=== PATIENT | female | born 1980 | race Caucasian/White ===

== ENCOUNTER 2021-04-24 10:24 | Outpatient (REF) | payer OTHER, SELFPAY ==
[2021-04-24 10:46] LABS: MANUAL DIFF FLAG NO
[2021-04-24 10:50] LABS: Basophils Absolute Auto 0.1 X10*3/uL (0.0-0.2); Basophils Percent Auto 1.3 % (0-2); Eosinophils Absolute Auto 0.1 X10*3/uL (0.0-0.4); Eosinophils Percent Auto 2.3 % (0-4); Hematocrit 40.8 % (37.0-47.0); Hemoglobin 13.2 g/dl (12.0-16.0); Imm Gran Abs Auto 0.02 X10*3/uL (0.00-0.03); Imm Gran Pct Auto 0.3 % (0.0-0.4); Lymphocytes Absolute Auto 2.1 X10*3/uL (1.2-4.9); Lymphocytes Percent Auto 33.2 % (20-40); Mean Corpuscular HGB Conc 32.4 g/dl (31.0-35.0); Mean Corpuscular Volume 92.7 fL (80.0-98.0); Mean Platelet Volume 10.6 fL (9.4-12.3); Monocytes Absolute Auto 0.7 X10*3/uL (0.1-1.2); Neutrophils Absolute Auto 3.2 x10*3/uL (2.0-8.3); Neutrophils Percent Auto 51.9 % (45-73); Platelet Count 243 X10*3/uL (160-400); Red Cell Distribution Width 12.7 % (11.0-16.0); White Blood Count 6.2 X10*3/uL (4.8-10.8)
[2021-04-24 11:25] LABS: Alanine Aminotransferase 17 U/L (0-31); Anion Gap 8 (12-20); Aspartate Amino Transferase 17 U/L (5-31); Blood Urea Nitrogen 12 mg/dL (9-16); Calcium 9.4 mg/dL (8.4-10.2); Carbon Dioxide 28 mmol/L (22-29); Chloride 108 mmol/L (96-108); Cholesterol 224 mg/dL; Estimated Glomerular Filt Rate > 60; Glucose Fasting 96 mg/dL (60-99); HDL Cholesterol 74 mg/dL; LDL Cholesterol Calculated 135 mg/dl; Potassium 4.2 mmol/L (3.3-5.1); Sodium 140 mmol/L (135-145); Triglycerides 78 mg/dL
[2021-04-24 11:42] LABS: Vitamin D 25-OH Total 25.8 ng/mL (>30)
== END 2021-04-24 10:25 | disposition home or self-care (01) ==
LOC: HO.LAB 10:24
PROVIDERS: PCP Internal Medicine; Visit Provider Internal Medicine
DX: Z00.00 Encounter for general adult medical examination without abnormal findings (principal); E55.9 Vitamin D deficiency, unspecified; I10 Essential (primary) hypertension
CPT/HCPCS: 36415; 80048; 80061; 82306; 84450; 84460; 85025

== ENCOUNTER 2023-03-13 12:58 | Outpatient (AMB) | payer OTHER, SELFPAY ==
[2023-03-13 13:20] VITALS: BP 110/70; PULSE 73; O2SAT 99; BMI 21.7
--- NOTE | 2023-03-13 13:20 | MHC.PC.OV ---
Vital Signs 03/13/23 13:20 Height 5 ft 8 in Weight 142 lb 8 oz BMI 21.7 BP 110/70 Blood Pressure Location Lt brachial Position Sitting Pulse 73 Pulse Source Pulse Oximeter Pulse Oximetry (%) 99 Oxygen Delivery Method Room Air Intake Visit Reasons: Hip Pain Intake Note: pt is here for Bi-lat Hip pain and was seen [facility] in [place] ER in September due to not being able to walk due to this Hip pain Allergies penicillin V Allergy (Unknown, Verified 06/16/23 04:32) rash Medication List - Last Reconciled 06/16/23 by Ivy Tran MD Paxlovid 300 mg (150 mg x 2)-100 mg (nirmatrelvir-ritonavir) take TWO 150 mg tablets of nirmatrelvir with ONE 100 mg tablet of ritonavir twice daily for 5 days PO NS Tobacco use date assessed: 03/13/23 Dental Screening Dental Screen Date: 03/13/23 Did you have a dental visit in the last 12 months?: No Did you have a dental problem in the last 6 months where you did not have access to dental care?: No Was dental information given to patient?: No HPI Hip Pain HPI Details 42-year-old lady here today complaining of ongoing hip pain present now for almost a year. Patient states that it got worse that she could not walk and presented to the ER with same complaint. She has been taking ibuprofen and Tylenol alternating with no relief afforded. Denies any history of trauma or strenuous exertion. Denies any accompanying urine or stool incontinence, no numbness or weakness in extremities reported. [facility], LAT[facility] Medical History Chronic hip pain, bilateral History of herpes simplex infection Hx of Hx of major depression ADHD, predominantly inattentive type Cervical intraepithelial neoplasia grade 3 HGSIL (high grade squamous intraepithelial lesion) on Pap smear of cervix Vitamin D deficiency Surgical History S/P LEEP (loop electrosurgical excision procedure) History of colposcopy Family History Father Prostate cancer Mother Bladder cancer Social History Housing: Apartment Patient Tobacco Use Status: Former Tobacco user e-Cigarette/Vaping Use: Never Used Second Hand Smoke Exposure: No service: No Current occupational status: employed Cognitive needs: No Hearing needs: No Vision needs: No Questionnaire Thrive Questionnaire Date Thrive assessed: 05/01/21 GRANT-7 AMB Questionnaire GRANT-7 Date GRANT - 7 assessed: 05/01/21 Source: Developed by Drs. Librado Gaona, Marla Andre, Amador Archibald and colleagues, with an educational renate from [employer]. Review of Systems Const Denies fever(s) and Denies weakness Card Denies chest pain, Denies lightheadedness and Denies dyspnea Resp Denies chest congestion, Denies cough and Denies dyspnea GI Denies abdominal pain, Denies change in bowel habits and Denies heartburn Denies urinary frequency, Denies dysuria and Denies urinary urgency Musc Reports no additional complaints Skin/Breast Denies lesions and Denies rash Neuro Denies Sensory deficit (Neuro) and Denies weakness Physical exam (Primary Care) Vital Signs: Last Vital Signs Pulse 73 03/13/23 13:20 BP 110/70 03/13/23 13:20 Pulse Ox 99 03/13/23 13:20 Oxygen Delivery Method Room Air 03/13/23 13:20 BMI result Body Mass Index 21.7 Tobacco/Smoking Status: Tobacco use Status Tobacco use date assessed 03/13/23 03/13/23 13:23 Patient Tobacco Use Status Former Tobacco user 03/13/23 13:23 e-Cigarette/Vaping Use Never Used 03/13/23 13:23 Thrive Assessment: Date of Thrive Assessment Date Thrive assessed 05/01/21 03/13/23 13:23 Const General: cooperative, no acute distress and alert Orientation/consciousness: patient oriented x3 HENMT Head: Yes atraumatic Ears: hearing grossly normal bilaterally and external ears normal General nose exam: Normal external nose present Face and sinus: Yes face symmetric Mouth: Normal oral and palatal mucosa present, oropharynx normal and moist mucous membranes Eyes Conjunctivae: conjunctivae normal Sclerae: sclerae normal EOM: EOMs intact bilaterally Neck Neck: Yes full ROM and Yes no lymphadenopathy Thyroid: Thyroid normal Resp Effort & Inspection: normal respiratory effort and able to speak in complete sentences Auscultation: clear to auscultation bilaterally Cardio Jugular venous distension: no JVD Rate: regular rate Rhythm: regular rhythm Heart sounds: S1 normal heart sound present and S2 normal heart sound present GI Inspection: Yes normal to inspection Palpation (GI): Soft to palpation Auscultation: normal bowel sounds General: Yes no CVA tenderness Back/Spine/Pelvis Back: no CVA tenderness and No back tenderness Skin General skin exam: no rashes or lesions noted Neuro General: patient oriented x3, gait normal, moves all extremities, no focal motor deficits and CN's II-XI intact bilaterally Cognition (Neuro): normal cognition Gait exam (Neuro): Normal gait present Motor exam (neuro): 5/5 motor strength present throughout Sensory Exam: No Sensory deficit (Neuro) Extrem Other: Pain list on flexion abduction of hip joint, negative straight leg raising sign bilaterally, no tenderness on palpation over greater trochanter General: Yes normal to inspection, Yes no pedal edema and Yes normal gait Assessment and Plan Assessment & Plan (1) Chronic hip pain, bilateral: Code(s): M25.551 - Pain in right hip; M25.552 - Pain in left hip; G89.29 - Other chronic pain Plan: Ordered x-ray of bilateral hip including pelvis, Referred to orthopedics for further evaluation management Orders: Orders XR hip BI w PEL1V 03/13/23 M25.551 - Pain in right hip, M25.552 - Pain in left hip, G89.29 - Other chronic pain Referrals Orthopedics Referral M25.551 - Pain in right hip, M25.552 - Pain in left hip, G89.29 - Other chronic pain Coding Level of Care Code Est Pt Level 3 (80878) Diagnoses Chronic hip pain, bilateral M25.551; M25.552; G89.29
== END 2023-03-13 13:42 | disposition home or self-care (01) ==
PROVIDERS: PCP Internal Medicine; Visit Provider Internal Medicine
DX: M25.551 Pain in right hip (principal); M25.552 Pain in left hip; G89.29 Other chronic pain
CPT/HCPCS: 99499

== ENCOUNTER 2023-03-13 13:44 | Outpatient (REF) | payer OTHER, SELFPAY ==
--- NOTE | ~2023-03-13 | XR_ITS ---
EXAMINATION: XR BILATERAL HIPS WITH AP PELVIS CLINICAL INFORMATION: Right hip pain. COMPARISON: None available. TECHNIQUE: AP view of the pelvis and AP and frog-leg lateral views of the bilateral hips were obtained. FINDINGS: No fracture. Hip joint spaces are maintained. A tiny accessory ossification centers incidentally noted lateral to the left acetabular roof. Alignment is anatomic. Sacroiliac joints and pubic symphysis are normal. There is sacralization of the left L5 transverse process. There is a small L5 spina bifida defect. There are small pelvic phleboliths. No abnormal soft tissue calcifications. XR/XR hip BI w PEL1V IMPRESSION: 1. No acute fracture or dislocation is seen. 2. No unusual degenerative changes are seen of the hips. 3. There is sacralization of the L5 left transverse process.
== END 2023-03-13 13:45 | disposition home or self-care (01) ==
LOC: HO.HMGCX 13:44
PROVIDERS: PCP Internal Medicine; Visit Provider Internal Medicine
DX: M25.551 Pain in right hip (principal); M25.552 Pain in left hip; G89.29 Other chronic pain
CPT/HCPCS: 73521

== ENCOUNTER 2023-04-03 08:02 | Outpatient (AMB) | payer OTHER, SELFPAY ==
--- NOTE | 2023-04-03 08:04 | A.OFFVIS_ITS ---
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 Patient reports ongoing pain for a year and a half with no previous treatment. No hx of injury or trauma. She stated that her pain got worse back in September which made her go to the ED and she couldn't walk for 5 days. Allergies penicillin V Allergy (Unknown, Verified 04/03/23 08:26) rash HPI pharmacy technician inpatient- Bilateral hip pain HPI Details 42-year-old female who presents in the [facility] today for an evaluation of bilateral hip pain. The patient reports ongoing pain for 1.5 years with no prior treatment. She does not recall any injury or trauma to the bilateral hips. She reports increased pain in 09/2022. She confirms taking Tylenol and Ibuprofen with no relief. [facility] Medical History (Updated 04/03/23 @ 08:46 by Amber Wilkerson PA-C) Chronic hip pain, bilateral History of herpes simplex infection Hx of Hx of major depression ADHD, predominantly inattentive type Cervical intraepithelial neoplasia grade 3 HGSIL (high grade squamous intraepithelial lesion) on Pap smear of cervix Vitamin D deficiency Surgical History (Updated 05/01/21 @ 13:33 by Ivy Tran MD) S/P LEEP (loop electrosurgical excision procedure) History of colposcopy Family History (Updated 05/20/21 @ 22:46 by Ivy Tran MD) Father Prostate cancer Mother Bladder cancer Social History Housing: Apartment Patient Tobacco Use Status: Former Tobacco user e-Cigarette/Vaping Use: Never Used Second Hand Smoke Exposure: No service: No Current occupational status: employed Cognitive needs: No Hearing needs: No Vision needs: No Review of Systems Const All systems reviewed & are unremarkable except as noted in HPI and below Physical Exam Const General: cooperative, healthy appearing and no acute distress Resp Effort & Inspection: normal respiratory effort and able to speak in complete sentences Cardio Rate: regular rate Peripheral pulses: Peripheral pulses 2+ throughout GI Palpation (GI): Soft to palpation Skin Lesions: no lesions Rashes: no rashes Extrem Other: Bilateral hips: Normal to inspection. No ecchymosis, erythema, or edema. Reproducible hip flexor pain. Full hip ROM in all planes. No tenderness to palpation over the greater trochanteric bursa. 4/5 strength with resisted hip flexion, knee extension, abduction, and abduction. Able to perform straight leg raise. NVI. Assessment & Plan Assessment & Plan (1) Tendonitis of right hip flexor: Code(s): M76.891 - Other specified enthesopathies of right lower limb, excluding foot (2) Tendonitis of left hip flexor: Code(s): M76.892 - Other specified enthesopathies of left lower limb, excluding foot Plan Ms. Garrison is a 42-year-old female who presents in the office today for an evaluation of bilateral hip pain. The patient reports ongoing pain for 1.5 years with no prior treatment. She does not recall any injury or trauma to the bilateral hips. She reports increased pain in 09/2022. She confirms taking Tylenol and Ibuprofen with no relief. The patient will be referred to physical therapy for hip flexor tendonitis bilaterally. We discussed that she will need to be dedicated to therapy to help get relief. I would like to re-evaluate in 8 weeks. In the event her symptoms have not decreased or resolved then we will consider a referral to Pain Management to evaluate for lower back involvement. Follow up will be in 8 weeks, or sooner if needed. X-rays of the bilateral hips, obtained on 03/13/2023, revealed: 1. No acute fracture or dislocation is seen. 2. No unusual degenerative changes are seen of the hips. 3. There is sacralization of the L5 left transverse process. Orders: Orders PT Evaluation and Treatment Today M76.891 - Other specified enthesopathies of right lower limb, excluding foot, M76.892 - Other specified enthesopathies of left lower limb, excluding foot Patient Instructions: Scribed for Amber Wilkerson PA-C by Emmy Bond medical secretary, on 04/03/2023 at 8:05 am, EST. Coding Level of Care Code New Pt Level 4 (87919) Diagnoses Tendonitis of right hip flexor M76.891 Tendonitis of left hip flexor M76.892
== END 2023-04-03 08:51 | disposition home or self-care (01) ==
PROVIDERS: PCP Internal Medicine; Visit Provider Physician Assistant
DX: M76.891 Other specified enthesopathies of right lower limb, excluding foot (principal); M76.892 Other specified enthesopathies of left lower limb, excluding foot
CPT/HCPCS: 99203

== ENCOUNTER → 2023-04-03 08:02 | Outpatient (BNVA) | payer OTHER, SELFPAY | PROVIDERS: PCP Internal Medicine; Visit Provider Physician Assistant | DX: M76.891 Other specified enthesopathies of right lower limb, excluding foot (principal); M76.892 Other specified enthesopathies of left lower limb, excluding foot | CPT/HCPCS: 99202 ==

== ENCOUNTER 2023-05-29 09:53 | Outpatient (AMB) | payer OTHER, SELFPAY ==
--- NOTE | 2023-05-29 09:55 | MHC.OFFVIS ---
Intake Intake Visit Reasons: TEL-Bilateral hip pain-Follow up Intake Note: Luz Maria is a 42 year old female who presents today for a telehealth visit for her bilateral hip pain. Patient reports still having ongoing pain. PT is going well, however they told her she has a hip and spine disalignment. She states her pain is worse when walking and standing for too long. Allergies penicillin V Allergy (Unknown, Verified 04/03/23 08:26) rash HPI TEL-Bilateral hip pain-Follow up HPI Details 42-year-old female who presents via phone for a telehealth visit today for a follow up of bilateral hip pain. I last saw the patient in the office on 04/03/2023 when she was referred to physical therapy. The patient reports she is attending physical therapy and states they are concerned the patient has some malalignment issues with the hips and spine. She reports continued pain in the hips. She states this increases with walking and standing for long periods of time. [facility] Medical History (Updated 04/03/23 @ 08:46 by Amber Wilkerson PA-C) Chronic hip pain, bilateral History of herpes simplex infection Hx of Hx of major depression ADHD, predominantly inattentive type Cervical intraepithelial neoplasia grade 3 HGSIL (high grade squamous intraepithelial lesion) on Pap smear of cervix Vitamin D deficiency Surgical History (Updated 05/01/21 @ 13:33 by Ivy Tran MD) S/P LEEP (loop electrosurgical excision procedure) History of colposcopy Family History (Updated 05/20/21 @ 22:46 by Ivy Tran MD) Father Prostate cancer Mother Bladder cancer Social History Housing: Apartment Patient Tobacco Use Status: Former Tobacco user e-Cigarette/Vaping Use: Never Used Second Hand Smoke Exposure: No service: No Current occupational status: employed Cognitive needs: No Hearing needs: No Vision needs: No Review of Systems Const All systems reviewed & are unremarkable except as noted in HPI and below Physical Exam Extrem Other: Deferred due to being a telehealth visit. Assessment & Plan Assessment & Plan (1) Tendonitis of right hip flexor: Code(s): M76.891 - Other specified enthesopathies of right lower limb, excluding foot (2) Tendonitis of left hip flexor: Code(s): M76.892 - Other specified enthesopathies of left lower limb, excluding foot Plan Ms. Garrison is a 42-year-old female who presents via phone for a telehealth visit today for a follow up of bilateral hip pain. I last saw the patient in the office on 04/03/2023 when she was referred to physical therapy. The patient reports she is attending physical therapy and states they are concerned the patient has some malalignment issues with the hips and spine. She reports continued pain in the hips. She states this increases with walking and standing for long periods of time. Due to the patient continue to having pain and complications I have placed a referral for the patient to be seen by Podiatry. I would like for the patient to be seen after she has completed physical therapy in 6 weeks. This appointment will be scheduled and the patient will be informed of date and time today. Follow up with orthopedics will be PRN, or sooner if needed. Patient Instructions: Scribed for Amber Wilkerson PA-C by vivian Meeks scribe, on 05/29/2023 at 9:44 am, EST. Telehealth Telehealth Location of provider rendering services: practice address Location of patient: address on file Patient Identification confirmed using: Name, : Yes Telehealth method: voice only Patient verbally consented to treatment: Yes Patient verbally consented to billing insurance company: Yes Patient informed of any privacy concerns related to visit: Yes Minutes spent on Phone/Video with Pt.: 6 Coding Level of Care Code Tele Est Pt Level 3 (71721) Diagnoses Tendonitis of right hip flexor M76.891 Tendonitis of left hip flexor M76.892
== END 2023-05-29 10:05 | disposition home or self-care (01) ==
PROVIDERS: PCP Internal Medicine; Visit Provider Physician Assistant
DX: M76.891 Other specified enthesopathies of right lower limb, excluding foot (principal); M76.892 Other specified enthesopathies of left lower limb, excluding foot
CPT/HCPCS: 99213

== ENCOUNTER → 2023-05-29 09:53 | Outpatient (BNVA) | payer OTHER, SELFPAY | PROVIDERS: PCP Internal Medicine; Visit Provider Physician Assistant ==

== ENCOUNTER 2023-10-30 09:18 | Outpatient (REF) | payer OTHER, SELFPAY ==
[2023-10-30 11:28] LABS: Alanine Aminotransferase 16 U/L (0-31); Anion Gap 13 (12-20); Aspartate Amino Transferase 19 U/L (5-31); Blood Urea Nitrogen 12 mg/dL (9-16); Calcium 9.3 mg/dL (8.4-10.2); Carbon Dioxide 25 mmol/L (22-29); Chloride 105 mmol/L (96-108); Cholesterol 241 mg/dL (<200); Estimated Glomerular Filt Rate > 60; Glucose Fasting 96 mg/dL (60-99); HDL Cholesterol 64 mg/dL (>40); LDL Cholesterol Calculated 161 mg/dL (<100); Sodium 139 mmol/L (135-145); Triglycerides 80 mg/dL (<150)
== END 2023-10-30 09:19 | disposition home or self-care (01) ==
LOC: HO.HMGCLDS 09:18
PROVIDERS: PCP Internal Medicine; Visit Provider Internal Medicine
DX: E55.9 Vitamin D deficiency, unspecified (principal); E78.5 Hyperlipidemia, unspecified; Z13.1 Encounter for screening for diabetes mellitus
CPT/HCPCS: 36415; 80048; 80061; 82306; 84450; 84460

== ENCOUNTER 2023-11-04 12:30 | Outpatient (AMB) | payer OTHER, SELFPAY ==
[2023-11-04 12:47] VITALS: BP 102/70; PULSE 71; O2SAT 99; BMI 21.0
--- NOTE | 2023-11-04 12:47 | MHC.PC.OV ---
Vital Signs 11/04/23 12:47 Height 5 ft 8 in Weight 138 lb BMI 21.0 BP 102/70 Blood Pressure Location Rt brachial Position Sitting Pulse 71 Pulse Source Pulse Oximeter Pulse Oximetry (%) 99 Oxygen Delivery Method Room Air Intake Visit Reasons: Physical Exam Intake Note: Pt is here today for her PE Is last menstrual period known: Yes Last menstrual period: 11/03/23 Allergies penicillin V Allergy (Unknown, Verified 11/08/23 23:05) rash Medication List - Last Reconciled 11/04/23 by Ivy Tran MD [id number] 120 mcg-25 mg- 66.7 mg (Alive Premium ) tabs PO Tobacco use date assessed: 11/04/23 Dental Screening Dental Screen Date: 11/04/23 Did you have a dental visit in the last 12 months?: Yes Did you have a dental problem in the last 6 months where you did not have access to dental care?: No Was dental information given to patient?: Patient has dentist HPI Physical Exam HPI Details 42-year-old lady here today for physical exam. 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 She currently sees [facility] for her routine Pap and pelvic exam. [facility] Medical History Hyperlipidemia History of miscarriage Chronic hip pain, bilateral History of herpes simplex infection Hx of Hx of major depression ADHD, predominantly inattentive type Cervical intraepithelial neoplasia grade 3 HGSIL (high grade squamous intraepithelial lesion) on Pap smear of cervix Vitamin D deficiency Surgical History S/P LEEP (loop electrosurgical excision procedure) History of colposcopy Family History Father Prostate cancer Mother Bladder cancer Social History Housing: Apartment Patient Tobacco Use Status: Former Tobacco user e-Cigarette/Vaping Use: Never Used Second Hand Smoke Exposure: No service: No Current occupational status: employed Cognitive needs: No Hearing needs: No Vision needs: No Female Reproductive History Menstrual Date of last menstrual period: 11/03/23 Questionnaire PHQ-9 Over the last 2 weeks, how often have you been bothered by any of the following problems? 1. Little interest or pleasure in doing things: not at all 2. Feeling down, depressed, or hopeless: not at all 3. Trouble falling or staying asleep, or sleeping too much: not at all 4. Feeling tired or having little energy: not at all 5. Poor appetite or overeating: not at all 6. Feeling bad about yourself - or that you are a failure or have let yourself or your family down: not at all 7. Trouble concentrating on things, such as reading the newspaper or watching television: not at all 8. Moving or speaking so slowly that other people could have noticed. Or the opposite - being so fidgety or restless that you have been moving around a lot more than usual: not at all 9. Thoughts that you would be better off or of hurting yourself in some way: not at all Total score: 0 Depression Screening Interpretation: Negative Depression Screening Done: Yes 65723 - PHQ-9 Billing: Yes Source: Developed by Drs. Librado Gaona, Marla Andre, Amador Archibald and colleagues, with an educational renate from [employer]. Thrive Questionnaire Date Thrive assessed: 11/04/23 I am a: Patient What is your living situation today?: I have a steady place to live Within the past 12 months, did the food you bought not last and you didn't have the money to get more?: Never true Within the past 12 months, did you worry whether your food would run out before you got money to buy more?: Never true Do you have trouble paying for medicines?: No Do you have trouble getting transportation to medical appointments?: No Do you have trouble paying your heating and electricity bill?: No Do you have trouble taking care of your child, family member or friend?: No Do you have trouble with day-to-day activities such as bathing, preparing meals, shopping, managing finances, etc.?: No Are you currently unemployed and looking for a job?: No Are you interested in more education?: No THRIVE Score: 0 AUDIT C Alcohol Use Questionnaire (AUDIT-C) 1. How often do you have a drink containing alcohol?: Never Total Score: 0 GRANT-7 AMB Questionnaire GRANT-7 Date GRANT - 7 assessed: 11/04/23 Feeling nervous, anxious, or on edge: 0 = Not at all Not being able to stop or control worryin = Not at all Worrying too much about different things: 0 = Not at all Trouble relaxin = Not at all Being so restless that it is hard to sit still: 0 = Not at all Becoming easily annoyed or irritable: 0 = Not at all Feeling afraid as if something awful might happen: 0 = Not at all Total GRANT-7 score (0-4 normal; 5-9 mild; 10-14 moderate; 15-21 severe): 0 Source: Developed by Drs. Librado Gaona, Marla Andre, Amador Archibald and colleagues, with an educational renate from [employer]. GRANT-7 Assessment Billing GRANT-7 Assessment Tool: GRANT-7 Assessment 85902 Review of Systems Const Denies fever(s) and Denies weakness Eyes Denies change in vision ENT Reports no additional complaints Card Denies chest pain, Denies lightheadedness and Denies dyspnea Resp Denies chest congestion, Denies cough and Denies dyspnea GI Denies abdominal pain, Denies change in bowel habits and Denies heartburn Denies urinary frequency, Denies dysuria and Denies urinary urgency Musc Reports no additional complaints Skin/Breast Denies lesions and Denies rash Neuro Denies Sensory deficit (Neuro) and Denies weakness Endo Reports no additional complaints Eduin/Lymph Reports no additional complaints Aller/Immun Reports no additional complaints Physical exam (Primary Care) Vital Signs: Last Vital Signs Pulse 71 11/04/23 12:47 BP 102/70 11/04/23 12:47 Pulse Ox 99 11/04/23 12:47 Oxygen Delivery Method Room Air 11/04/23 12:47 BMI result Body Mass Index 21.0 Tobacco/Smoking Status: Tobacco use Status Tobacco use date assessed 11/04/23 11/04/23 12:50 Patient Tobacco Use Status Former Tobacco user 11/04/23 12:50 e-Cigarette/Vaping Use Never Used 11/04/23 12:50 PHQ-9: PHQ-9 Score PHQ-9: Total score 0 11/08/23 23:06 Depression Screening Interpretation: Negative Thrive Assessment: Date of Thrive Assessment Date Thrive assessed 11/04/23 11/04/23 12:55 Advance Care Planning discussion: Completed/Scanned Date of discussion: 11/04/23 Who was present: Patient Forms completed: Health Care Proxy Time spent: 16-45 minutes Actual minutes spent: 16 Const General: cooperative, no acute distress and alert Orientation/consciousness: patient oriented x3 HENMT Ears: hearing grossly normal bilaterally and external ears normal General nose exam: Normal external nose present Face and sinus: Yes face symmetric Mouth: Normal oral and palatal mucosa present, oropharynx normal and moist mucous membranes Eyes Conjunctivae: conjunctivae normal Sclerae: sclerae normal EOM: EOMs intact bilaterally Neck Neck: Yes full ROM and Yes no lymphadenopathy Thyroid: Thyroid normal Chest Chest palpation & inspection: normal inspection of the chest Breast/axilla palpation: normal palpation of the breasts Resp Effort & Inspection: normal respiratory effort and able to speak in complete sentences Auscultation: clear to auscultation bilaterally Cardio Jugular venous distension: no JVD Rate: regular rate Rhythm: regular rhythm Heart sounds: S1 normal heart sound present and S2 normal heart sound present GI Inspection: Yes normal to inspection Palpation (GI): Soft to palpation Auscultation: normal bowel sounds General: Yes no CVA tenderness and Yes deferred (Goes to [facility] for her routine Pap and pelvic exam) Back/Spine/Pelvis Back: no CVA tenderness and No back tenderness Skin General skin exam: no rashes or lesions noted Neuro General: patient oriented x3, gait normal, moves all extremities, no focal motor deficits and CN's II-XI intact bilaterally Cognition (Neuro): normal cognition Gait exam (Neuro): Normal gait present Motor exam (neuro): 5/5 motor strength present throughout Sensory Exam: No Sensory deficit (Neuro) Extrem General: Yes normal to inspection, Yes no pedal edema and Yes normal gait Psych Appearance: grossly normal and well kempt Mental Status: mental status grossly normal Speech and movement: Normal speech and movement present Affect: normal affect Thought process: Normal thought process present Thought content: Normal thought content present Results Reviewed Results Reviewed: Name: Luz Maria Garrison Age/Sex: 42/F : 1980 Unit#: [id number] Attend Dr: Ivy Tran MD Re10/30/23 Status: DEP REF [facility]: [id number] Disch: SPEC : [id number] KHUSHBOO: 10/30/23 STATUS: COMP REQ : [id number] RECD: 10/30/23-[address]: Ivy Tran MD COMP: 10/30/23-1132 ENTERED: 10/30/[address]: ORDERED: Met Prof Fast, AST, ALT, Lipid Panel, Vitamin D 25-OH Test Result Flag Reference Sodium 139 135-145 mmol/L Potassium 4.0 3.3-5.1 mmol/L CL 105 96-108 mmol/L CO2 25 22-29 mmol/L Gap 13 12-20 BUN 12 9-16 mg/dL Creat 0.87 0.5-1.4 mg/dL EGFR > 60 NOTE: For -Iraqi individuals, multiply the result by 1.210. Chronic Kidney Disease: Estimated GFR < 60 mL/min/1.73m2 Severe Kidney Disease: Estimated GFR < 15 mL/min/1.73m2 FBS 96 60-99 mg/dL CA 9.3 8.4-10.2 mg/dL AST (GOT) 19 5-31 U/L ALT (GPT) 16 0-31 U/L Triglyceride 80 <150 mg/dL Desirable Triglyceride: less than 150 mg/dL Borderline High Triglyceride 150-199 mg/dL High Triglyceride: 200-499 mg/dL Very High Triglyceride: greater than or equal to 5OO mg/dL Cholesterol 241 H <200 mg/dL Desirable Cholesterol: less than 200 mg/dL Borderline High Cholesterol: 200-239 mg/dL High Cholesterol: greater than 239 mg/dL LDL Calculated 161 H <100 mg/dL Desirable LDL: less than 100 mg/dL Near Optimal/Above Optimal LDL: 110-129 mg/dL Borderline High LDL: 130-159 mg/dL High LDL: 160-189 mg/dL Very High LDL: greater than or equal to 190 mg/dL HDL 64 >40 mg/dL Desirable HDL: greater than 40 mg/dL Note: This HDL assay may give artificially low results in patients with liver disease. Vit D 25-OH Tot 60.0 >30 ng/mL Health Based Reference Values* < 20 ng/mL Deficient 20-30 ng/mL Insufficient > 30 ng/mL Sufficient Assessment and Plan Assessment & Plan (1) Annual visit for general adult medical examination with abnormal findings: Code(s): Z00.01 - Encounter for general adult medical examination with abnormal findings Plan: Discuss recent lab results with patient. Recommended dental visit every 6 months and regular eye exams, at least every 2 years. Take adequate calcium in diet and vitamin-D 3 at 2000 IU per cap once a day, in addition to weight-bearing exercises to help maintain good muscle tone and weight control. Instructed to do self-breast exam, and recommended to get yearly mammogram, starting at age 40. Goes to [facility] for her routine Pap and pelvic exam which is currently up-to-date. Up-to-date as well with her vaccinations. (2) Hyperlipidemia: Code(s): E78.5 - Hyperlipidemia, unspecified Qualifiers: Hyperlipidemia type: pure hypercholesterolemia Qualified Code(s): E78.00 - Pure hypercholesterolemia, unspecified Plan: Reviewed recent fasting lipid profile with patient with elevated LDL cholesterol . Reinforced adherence to low-cholesterol diet, advised to cut back on using a lot of coconut milk and regular exercise, at least 30 minutes 3 to 4 times a week. Advised patient to make healthy food choices, eat more fruits, vegetables, whole grains, wild caught fish and low-fat dairy. Limit amount of meat and fried or fatty food products, as well as processed foods and fast foods. (3) Advanced directives, counseling/discussion: Code(s): Z71.89 - Other specified counseling Plan: Initiated the conversation about Advanced Directives. Advanced Directives help patients prepare for current and future decisions about their medical treatment and place of care. Discussed with patient that it is a process where a patients current condition and prognosis are reviewed, their wishes for information regarding their illness are elicited, and likely medical dilemmas are presented and options discussed. Healthcare proxy form completed. The form can be amended as needed, reviewed yearly and make changes as needed Coding Level of Care Code Est Pt Prev Care 40-64y(91119) Diagnoses Annual visit for general adult medical examination with abnormal findings Z00.01 Pure hypercholesterolemia E78.00 Hyperlipidemia type: pure hypercholesterolemia Advanced directives, counseling/discussion Z71.89 Additional Codes GRANT-7 Assessment Billing - GRANT-7 Assessment Tool: GRANT-7 Assessment 27003 ([id number]) Vital Signs *Quality* - Advance Care Planning discussion: Completed/Scanned ([id number]) Vital Signs *Quality* - Time spent: 16-45 minutes ([id number])
== END 2023-11-04 17:16 | disposition home or self-care (01) ==
PROVIDERS: PCP Internal Medicine; Visit Provider Internal Medicine
DX: Z00.00 Encounter for general adult medical examination without abnormal findings (principal); E78.00 Pure hypercholesterolemia, unspecified; Z71.89 Other specified counseling
CPT/HCPCS: 1123F; 99396; 99497

== ENCOUNTER 2023-12-03 10:03 | Outpatient (REF) | payer OTHER, SELFPAY ==
[2023-12-03 14:07] LABS: Free T4 (Free Thyroxine) 0.94 ng/dL (0.71-1.85); Thyroid Stimulating Hormone 1.59 uIU/mL (0.32-4.0)
[2023-12-04 10:59] LABS: Triiodothyronine T3 Free 3.1 pg/mL (2.3-4.2)
== END 2023-12-03 10:04 | disposition home or self-care (01) ==
LOC: HO.HMGCLDS 10:03
PROVIDERS: PCP Internal Medicine; Visit Provider Internal Medicine
DX: E78.00 Pure hypercholesterolemia, unspecified (principal)
CPT/HCPCS: 36415; 84439; 84443; 84481

== ENCOUNTER 2024-11-19 07:15 | Outpatient (REF) | payer OTHER, SELFPAY ==
[2024-11-19 08:30] LABS: Alanine Aminotransferase 36 U/L (0-31); Aspartate Amino Transferase 32 U/L (5-31); Cholesterol 287 mg/dL (<200); HDL Cholesterol 83 mg/dL (>40); Triglycerides 89 mg/dL (<150)
== END 2024-11-19 07:16 | disposition home or self-care (01) ==
LOC: HO.LAB 07:15
PROVIDERS: PCP Internal Medicine; Visit Provider Internal Medicine
DX: Z13.1 Encounter for screening for diabetes mellitus (principal); E78.00 Pure hypercholesterolemia, unspecified
CPT/HCPCS: 36415; 80061; 82947; 84450; 84460

== ENCOUNTER 2024-11-24 08:33 | Outpatient (AMB) | payer OTHER, SELFPAY ==
[2024-11-24 08:35] VITALS: BP 110/70; PULSE 70; O2SAT 98; BMI 21.6
--- NOTE | 2024-11-24 08:35 | A.OFFPC_ITS ---
Vital Signs 11/24/24 08:35 Height 5 ft 8 in Weight 142 lb BMI 21.6 BP 110/70 Blood Pressure Location Lt brachial Position Sitting Pulse 70 Pulse Source Pulse Oximeter Pulse Oximetry (%) 98 Oxygen Delivery Method Room Air Intake Visit Reasons: PE Intake Note: pt is here for PE, unsure if pap was done. patient just given , needs possible pap smear as well as mammogram Allergies penicillin V Allergy (Unknown, Verified 11/24/24 09:17) rash Medication List - Last Reconciled 11/24/24 by Ivy Tran MD [id number] 120 mcg-25 mg- 66.7 mg (Alive Premium ) tabs PO Tobacco use date assessed: 11/24/24 Dental Screening Dental Screen Date: 11/24/24 Did you have a dental visit in the last 12 months?: Yes Did you have a dental problem in the last 6 months where you did not have access to dental care?: No Was dental information given to patient?: Patient has dentist HPI PE HPI Details - The patient is a 44-year-old female pr esenting for her physical exam. - Recently gave last August 2024 , u p-to-date with her Tdap and gets yearly flu vaccines - Appendicitis: Hospitalized twice this year for abdominal pain, initially suspected to be appendicitis, confirmed and treated surgically in October 27/2025. - Received IV antibiotics during both ho spitalizations, developed generalized rash on abdomen after antiseptic wash applied on abdomen, the name of it she can not recall, just before she got her appendectomy. Would like a referral to an ballpoint pen cartridge tester to confirm what drug allergy she has. Was told that she is allergic to penicillin but could not recall what reaction she had - Hypercholesterolemia: Cholesterol leve ls increased from 241 mg/dL to 287 mg/dL over the past year, with LDL cholesterol rising from 161 mg/dL to 187 mg/dL. - Elevated liver enzymes: Mild elevation noted - requests referral to Dermatology to elsie rodriguezk pruritic mole on her mid back and hyperpigmented lesion on anterior neck. Positive skin cancer on both father and sister [facility] Medical History Elevated liver transaminase level Drug allergy, antibiotic Hyperlipidemia History of miscarriage Chronic hip pain, bilateral History of herpes simplex infection Hx of Hx of major depression ADHD, predominantly inattentive type Cervical intraepithelial neoplasia grade 3 HGSIL (high grade squamous intraepithelial lesion) on Pap smear of cervix Vitamin D deficiency Surgical History Hx of appendectomy S/P LEEP (loop electrosurgical excision procedure) History of colposcopy Family History Father Prostate cancer Skin cancer Mother Bladder cancer Sister Skin cancer Social History Housing: Apartment Patient Tobacco Use Status: Former Tobacco user e-Cigarette/Vaping Use: Never Used Second Hand Smoke Exposure: No service: No Current occupational status: employed Cognitive needs: No Hearing needs: No Vision needs: No Female Reproductive History Menstrual Other: Sees 7 sisters OBGYN Questionnaire PHQ-9 Over the last 2 weeks, how often have you been bothered by any of the following problems? 1. Little interest or pleasure in doing things: not at all 2. Feeling down, depressed, or hopeless: not at all 3. Trouble falling or staying asleep, or sleeping too much: not at all 4. Feeling tired or having little energy: not at all 5. Poor appetite or overeating: not at all 6. Feeling bad about yourself - or that you are a failure or have let yourself or your family down: not at all 7. Trouble concentrating on things, such as reading the newspaper or watching television: not at all 8. Moving or speaking so slowly that other people could have noticed. Or the opposite - being so fidgety or restless that you have been moving around a lot more than usual: not at all 9. Thoughts that you would be better off or of hurting yourself in some way: not at all Total score: 0 Depression Screening Interpretation: Negative Depression Screening Done: Yes 44977 - PHQ-9 Billing: Yes Source: Developed by Drs. Librado Gaona, Marla Andre, Amador Archibald and colleagues, with an educational renate from [employer]. Thrive Questionnaire Date Thrive assessed: 11/24/24 I am a: Patient What is your living situation today?: I have a steady place to live Within the past 12 months, did the food you bought not last and you didn't have the money to get more?: Never true Within the past 12 months, did you worry whether your food would run out before you got money to buy more?: Never true Do you have trouble paying for medicines?: No Do you have trouble getting transportation to medical appointments?: No Do you have trouble paying your heating and electricity bill?: No Do you have trouble taking care of your child, family member or friend?: No Do you have trouble with day-to-day activities such as bathing, preparing meals, shopping, managing finances, etc.?: No Are you currently unemployed and looking for a job?: No Are you interested in more education?: No Please select the resources that you would like help with: None Currently or been in a relationship where the following occur: No concerns reported THRIVE Score: 0 AUDIT C Alcohol Use Questionnaire (AUDIT-C) 1. How often do you have a drink containing alcohol?: Never 3. How often do you have six or more drinks on one occasion?: Never Total Score: 0 Score Reviewed/Action Taken: Yes GRANT-7 AMB Questionnaire GRANT-7 Date GRANT - 7 assessed: 11/24/24 Feeling nervous, anxious, or on edge: 0 = Not at all Not being able to stop or control worryin = Not at all Worrying too much about different things: 0 = Not at all Trouble relaxin = Not at all Being so restless that it is hard to sit still: 0 = Not at all Becoming easily annoyed or irritable: 0 = Not at all Feeling afraid as if something awful might happen: 0 = Not at all Total GRANT-7 score (0-4 normal; 5-9 mild; 10-14 moderate; 15-21 severe): 0 Source: Developed by Drs. Librado Gaona, Marla Andre, Amador Archibald and colleagues, with an educational renate from [employer]. GRANT-7 Assessment Billing GRANT-7 Assessment Tool: GRANT-7 Assessment 63424 Review of Systems Const Denies fever(s) and Denies weakness Eyes Denies change in vision ENT Reports no additional complaints Card Denies chest pain, Denies lightheadedness and Denies dyspnea Resp Denies chest congestion, Denies cough and Denies dyspnea GI Denies abdominal pain, Denies change in bowel habits and Denies heartburn Denies urinary frequency, Denies dysuria and Denies urinary urgency Musc Reports no additional complaints Skin/Breast Reports as per HPI, Denies breast pain, Denies breast mass and Denies rash Neuro Denies Sensory deficit (Neuro) and Denies weakness Psych Reports no additional complaints Endo Reports no additional complaints Eduin/Lymph Reports no additional complaints Aller/Immun Reports no additional complaints Physical exam (Primary Care) Vital Signs: Last Vital Signs Pulse 70 11/24/24 08:35 BP 110/70 11/24/24 08:35 Pulse Ox 98 11/24/24 08:35 Oxygen Delivery Method Room Air 11/24/24 08:35 BMI result Body Mass Index 21.6 Tobacco/Smoking Status: Tobacco use Status Tobacco use date assessed 11/24/24 11/24/24 08:36 Patient Tobacco Use Status Former Tobacco user 11/24/24 08:36 e-Cigarette/Vaping Use Never Used 11/24/24 08:36 PHQ-9: PHQ-9 Score PHQ-9: Total score 0 11/24/24 08:53 Depression Screening Interpretation: Negative Thrive Assessment: Date of Thrive Assessment Date Thrive assessed 11/24/24 11/24/24 08:36 Currently or been in a relationship where the following occur: No concerns reported Const General: healthy appearing, comfortable, no acute distress and Physically active Nutritional Appearance: average body habitus Orientation/consciousness: patient oriented x3 Limitations: no limitations HENMT Head: Yes normocephalic Ears: external ears normal, TM's normal bilaterally and EAC's normal General nose exam: Normal external nose present Face and sinus: Yes face symmetric Mouth: Normal oral and palatal mucosa present, lip normal, tongue normal, oropharynx normal and moist mucous membranes Eyes General: appearance normal, both eyes and all related structures Neck Neck: Yes normal visual inspection, Yes full ROM, Yes no lymphadenopathy and Yes supple Thyroid: Thyroid normal (Nonpalpable) Chest Breast/axilla inspection: normal inspection of the breasts Breast/axilla palpation: normal palpation of the breasts Resp Auscultation: clear to auscultation bilaterally Cardio Rate: regular rate Rhythm: regular rhythm Heart sounds: S1 normal heart sound present and S2 normal heart sound present Peripheral pulses: Peripheral pulses 2+ throughout GI Inspection: Yes normal to inspection Palpation (GI): Soft to palpation, nontender, no guarding and no masses Other: Sees OBGYN at 7 sister General: Yes no CVA tenderness Back/Spine/Pelvis Back: no CVA tenderness and No back tenderness Skin Other: Hyperpigmented skin tag on right supraclavicular area, slightly raised erythematous patch on interscapular area Neuro General: patient oriented x3, gait normal, tone normal, moves all extremities and no focal motor deficits Sensory Exam: No Sensory deficit (Neuro) Extrem General: Yes normal to inspection, Yes full ROM, Yes no joint enlargement, Yes no clubbing, cyanosis or edema, Yes no calf tenderness and Yes normal gait Psych Appearance: grossly normal and well kempt Mental Status: mental status grossly normal Speech and movement: Normal speech and movement present Affect: normal affect Results Reviewed Results Reviewed: Name: Luz Maria Garrison Age/Sex: 43/F : 1980 Unit#: [id number] Attend Dr: Ivy Tran MD Re11/19/24 Status: DEP [facility] SPEC : [id number]: 11/19/24 STATUS: COMP REQ : [id number] RECD: 11/19/[address]: Ivy Tran MD COMP: 11/19/24 ENTERED: 11/19/[address]: ORDERED: Glu Fasting, AST, ALT, Lipid Panel Test Result Flag Reference FBS 98 60-99 mg/dL AST (GOT) 32 H 5-31 U/L ALT (GPT) 36 H 0-31 U/L Triglyceride 89 <150 mg/dL Desirable Triglyceride: less than 150 mg/dL Borderline High Triglyceride 150-199 mg/dL High Triglyceride: 200-499 mg/dL Very High Triglyceride: greater than or equal to 5OO mg/dL Cholesterol 287 H <200 mg/dL Desirable Cholesterol: less than 200 mg/dL Borderline High Cholesterol: 200-239 mg/dL High Cholesterol: greater than 239 mg/dL LDL Calculated 187 H <100 mg/dL Desirable LDL: less than 100 mg/dL Near Optimal/Above Optimal LDL: 110-129 mg/dL Borderline High LDL: 130-159 mg/dL High LDL: 160-189 mg/dL Very High LDL: greater than or equal to 190 mg/dL HDL 83 >40 mg/dL Desirable HDL: greater than 40 mg/dL Note: This HDL assay may give artificially low results in patients with liver disease. Coding Level of Care Code Est Pt Prev Care 40-64y(35700) Diagnoses Drug allergy, antibiotic Z88.1 Skin lesion of back L98.9 Pure hypercholesterolemia E78.00 Hyperlipidemia type: pure hypercholesterolemia Elevated liver transaminase level R74.01 Additional Codes GRANT-7 Assessment Billing - GRANT-7 Assessment Tool: GRANT-7 Assessment 37096 ([id number]) PHQ-9 - 40655 - PHQ-9 Billing: Yes ([id number]) Assessment & Plan Assessment & Plan (1) Drug allergy, antibiotic: Code(s): Z88.1 - Allergy status to other antibiotic agents Category: Medical (2) Skin lesion of back: Code(s): L98.9 - Disorder of the skin and subcutaneous tissue, unspecified (3) Hyperlipidemia: Code(s): E78.5 - Hyperlipidemia, unspecified Category: Medical Qualifiers: Hyperlipidemia type: pure hypercholesterolemia Qualified Code(s): E78.00 - Pure hypercholesterolemia, unspecified (4) Elevated liver transaminase level: Code(s): R74.01 - Elevation of levels of liver transaminase levels Category: Medical Plan The patient will undergo allergy testing to determine the presence of a penicillin allergy another drug allergies, given the uncertainty of her previous reactions to antibiotics. A dermatology consultation is advised due to her family history of skin cancer, focusing on monitoring any skin changes. Cholesterol levels will be reassessed in four months to evaluate changes and guide dietary and lifestyle modifications. Liver enzymes will be monitored due to mild elevation, considering potential causes such as recent or infection. Up-to-date with her Tdap, gets yearly flu shots. Will see her back for follow-up in 4 months after her repeat fasting labs done to check lipids and liver enzymes. Patient was informed and verbally consented to the use of an ambient scribe for clinic note documentation during this visit. Orders: Orders Lipid Panel 03/27/25 E78.00 - Pure hypercholesterolemia, unspecified, R74.01 - Elevation of levels of liver transaminase levels Liver Panel 03/27/25 E78.00 - Pure hypercholesterolemia, unspecified, R74.01 - Elevation of levels of liver transaminase levels Referrals Dermatology Referral L98.9 - Disorder of the skin and subcutaneous tissue, unspecified, Z12.83 - Encounter for screening for malignant neoplasm of skin Allergy & Immunology Referral Z88.1 - Allergy status to other antibiotic agents
--- OUTSIDE RECORDS SUMMARY | 2024-11-24 08:44 | XMS_ITS | Clinical Summary ---
Author Organization [facility] Address [address] [place] [address] Phone Care Team Providers Care Guide Alpine Name Role Phone Geoffrey Calvillo MD Unavailable [phone] Ivy Tran MD Primary Care Provider Allergies Active Allergy Reactions Criticality Noted Date Comments Penicillin Rash Low 06/06/2016 Medications vitamins with ferrous fumarate- folic acid 28 mg iron- 800 mcg Tab Take 1 tablet by mouth daily. Active aspirin 81 MG EC tablet Take 2 tablets (162 mg total) by mouth daily. 180 tablet 1 4 Active FREESTYLE LITE METER meter kit Use as instructed 1 kit 5 Active lancets (FREESTYLE) [address] 1 each onto the skin 4 (four) times a day. 300 each 5 Active FREESTYLE LITE Strp stripsIndicatio ns:Gestational diabetes Freestyle lite- QID 100 strip 5 Active Active Problems Problem Noted Date Diagnosed Date Abdominal pain affecting 04/25/2024 Overview (05/12/2024): Seen in ED at 20w for abdominal pain. Neg MRI but was given IV antibiotics. Now on probiotics. Pain resolved. Assessment & Plan (05/12/2024 3:28 PM EST): Seen in ED at 20w for abdominal pain. Neg MRI but was given IV antibiotics. Now on probiotics. Pain resolved. Assessment & Plan (04/26/2024 5:42 PM EST): Luz Maria reports she was seen in ED yesterday for the abdominal pain she was having and subsequently admitted d/t an elevated WBC of 16.7. She was given multiple doses of IV antibiotics and had an MRI that was normal. Her abdominal pain improved and her WBC trended down to 7 per pt. She is feeling well now, just tired and has a headache which she feels is d/t having to be NPO at hospital this morning. Reviewed importance of calling with any recurrence of this pain. This CNM reviewed MRI report that showed a gravid uterus with no evidence of acute appendicitis or abdominal abnormality. Assessment & Plan (04/25/2024 2:38 PM EST): Luz Maria presents today with abdominal tightening and discomfort that started last night and has been getting worse. It is constant but has waves of being extra uncomfortable intermittently. She is feeling the pain centrally in her upper abdomen and in her right lower quadrant. Last night she noted that her panties were wet. She does have occasional stress incontinence but didn't remember an incident that would have caused leaking. It was clear. She has not felt or seen any leaking since. She has had baseline constipation in her . Did have a bowel movement this morning that was fairly normal. At around 11 this morning she started to feel some nausea and it has gotten worse through the afternoon. Forced herself to eat a little lunch. She is now quite uncomfortable. Denies fever, chills, dysuria, vomiting, diarrhea. Had been feeling movement. On exam: Fundus at umbilicus heart rate 140 Mild tenderness in upper abdomen and some rebound tenderness in RLQ SSE with normal physiologic discharge. Negative fern negative nitrazine. No evidence of ruptured membranes. SVE anterior, closed/long/high firm No OB etiology identified for pain. Discussed that appendicitis is on the differential. Recommended that she have further evaluation at the ED. She agrees and will head there now. HSV (herpes simplex virus) infection 03/11/2024 Overview (03/11/2024): Will need suppression at 36 wks Assessment & Plan (03/11/2024 4:35 PM EST): Pt reports had a recent outbreak that resolved with treatment. Supervision of high-risk 01/15/2024 Overview (05/31/2024): CNM OB-CMI score: 2 [01/15/2024] Group PN care-- interested screening cfDNA neg, carrier screen neg Baby ASA Indicated, pt aware Rh pos GC/Chlam neg PAP 08/2023 NILM Flu done COVID-19 declines Hgb 11.1 GTT * Doing fingersticks in lieu of GTT Repeat RPR NR Tdap * RSV * EPDS * PPBC * GBS * Infant Feeding Plan breast Assessment & Plan (05/26/2024 12:24 PM EST): Luz Maria is feeling well! Here with her partner. Baby has been active. She prefers to do 2 weeks of blood sugar testing rather than the GTT. Supplies ordered and instructions provided. Reviewed that she still will need to have CBC and RPR drawn. She agrees. Group topics reviewed include: Stress and stress relief measures, healthy diet in , dietary sources of iron and calcium. Assessment & Plan (05/12/2024 3:25 PM EST): [facility] Session #1 today. Topics included: intro to group, how to do self health assessment, intro to concept spinning babies, discussed common discomforts of and relief measures. Reviewed comfort measures. Reviewed steps to take toward optimal health in . Reviewed s/s PTL, danger signs, when/how to call. Assessment & Plan (05/05/2024 4:38 PM EST): Luz Maria is feeling well. Delighted to be joining [facility]. Pt is c/o a transient rash on her abdomen. States it is currently resolved, but is wondering how to care for her belly. Recommended cera-v cream and to let us know if it returns. Feeling movement. Denies vb, lof, ctxs ALISSA for group. Assessment & Plan (04/26/2024 5:44 PM EST): Luz Maria is a 43yo at 21w1d who presents to routine OB visit following anatomy u/s today. anatomy was normal and cervical length measuring 2.6-3.1cm in length without funneling with rec from [facility] to follow up in one week for reassessment. Planning Group Care! Answered questions about glucose testing - would like to plan QID testing. Rev when to call. Assessment & Plan (04/07/2024 4:41 PM EST): Luz Maria is feeling well. Thinks she may have felt flutters today. Pt denies vb, lof, ctxs We discussed upcoming level 2 --scheduled We reviewed normal limites of FM at this gestational age ALISSA 4 wks. Assessment & Plan (03/11/2024 4:30 PM EST): Luz Maria is feeling well. Delighted to hear fhts. Denies any concerns We discussed [facility] and CBE options Reviewed upcoming FAS ALISSA 4 wks Assessment & Plan (02/14/2024 9:33 AM EDT): -To lab tomorrow for Intake Labs and Genetic testing -Reassured about health of with normal US on 01/27 and + FHT today Antepartum multigravida of advanced maternal age 0901/15/2024 Overview (01/15/2024): o Recommend daily baby aspirin (162 mg daily) if other risk factors are present (nulliparity, BMI >= 30, family h/o pre-eclampsia in mother or sister, previous with SGA , previous stillbirth, interval of >= 10 years between pregnancies, IVF ) - disc at intake o Risks of aneuploidy discussed w patient. o Offered - Offer cell free DNA - Level 2 - Offer [facility] and amnio - Pt. chooses level II and cell free DNA o FKC at 36 wks o Growth U/S at 32, 36 weeks if no other risk factors o BPP wkly at 36wks o Disc option for induction after 39 wks. Assessment & Plan (02/14/2024 9:32 AM EDT): Planning CFDNA - will do tomorrow Will do Level 2 at 20 weeks - order at [place] Questions answered about Genetic testing H/O LEEP 01/15/2024 Overview (05/05/2024): Disc plan for Q2 weeks CL u/s from 16-24 weeks gestation. 05/02/24--per MFM can stop cx length as it is now normal at 22wks Assessment & Plan (05/05/2024 4:26 PM EST): 05/02/24--per MFM can stop cx length as it is now normal at 22wks Assessment & Plan (04/07/2024 4:38 PM EST): Discussed recommendation for cx length US and rationale. Pt declines, though she understands that cx shortening can be asymptomatic. Pt would like to proceed with level 2 US and consider additional screening prn based on that scan. Estimated Date of Delivery Comme nts Yes 09/05/2024 Based on last me nstrual period of 11/30/2023 (Exact Date) Resolved Problems Problem Noted Date Diagnosed Date Resolved Date Abdominal pain 04/25/2024 05/12/2024 Encounters Date Type Department Care Team Description 09/05/2024 3:50 PM EDT - 09/05/2024 11:59 PM EDT Hospital Encounter [facility] [address] [place] [address] Barbara Vickers CNM Discharge Disposition: Home or Self Care 09/01/2024 Transcribe Orders [facility] [address] [place] [address] [place] [address] Kamlesh Morocho (advanced maternal age) multigravida 35+, third trimester (Primary Dx) 08/31/2024 Telephone [facility] [address] [place] [address] [place] [address] Eggemeier, Kitty B, CNM, MPH BPP Ultrasound 40 weeks (BPP Ultrasound 40 weeks) from Last 3 Months Immunizations Immunization Administration Dates Next Due DTaP 08/08/1988 HPV,quadrivalent 10/08/2009 Hepatitis A, Adult 03/16/2012 Hepatitis B 09/09/1995 Hepatitis B Adult 05/11/1996,10/14/1995 Influenza Quadrivalent w/ Preservative IM 2018,02/09/2018,03/02/2017 Influenza Trivalent w/ Preservative IM 4 MMR 11/29/1997,10/17/1984 Meningococcal MCV4P 08/29/2015 PPD Test 08/29/2015,08/27/2015 Polio, Unspecified Formulation 03/16/2012,1988 Tdap 11/14/2016,08/27/2015 Varicella 07/01/1991 Family History Medical History Relation Comments Prostate cancer Father Lung cancer Maternal Grandfather Hyperlipidemia Maternal Grandmother Bladder Cancer Mother smoker Relation Status Comments Father Alive Maternal Grandfather Maternal Grandmother Mother Social History Tobacco Use Types Packs/Day Years Used Date Smoking Tobacco: Former Smokeless Tobacco: Never Alcohol Use Standard Drinks/Week Comments Not Currently 0 (1 standard drink = 0.6 oz pur e alcohol) Education Answer Date Recorded Are you interested in more education? Not on kylie e 08/23/2022 Are you concerned about learning? Not on file 08/23/2022 No 08/23/2022 No 08/23/2022 Food Answer Date Recorded Within the past 6 months we worried whether our food would run out before we got money to buy more. Never True 04/25/2024 Within the past 6 months the food we bought just didn't last and we didn't have enough money to get more. Never True Residential Stability Answer Date Recor ded Family situation today data Not on file 03/29 How many times have you move d in the past 12 months? Zero (I did not move) 04/25/2024 Paying for Meds Answer Date Recorded Do you have trouble paying for medicines? No 04/25/2024 Paying Utility Bills Answer Date Record ed Do you have trouble paying your heating or elect ricity bill? No 04/25/2024 Transportation Answer Date Recorded Has the lack of transportati on kept you from medical appointments or from getting medications? No 04/25/2024 Digital Access Answer Date Recorded No 04/25/2024 Yes 04/25/2024 Do you have reliable internet access at home? Ye s 04/25/2024 Do you have a device (e.g., phone, tablet, computer) with a working camera? Yes 04/25/2024 Intimate Partner Violence Answer Date R ecorded Are you denied basic needs s uch as food, clothing, or medical care? No 04/25/2024 In the past 12 months have y ou been in a relationship with a person who hurts, threatens, or tries to control you? No 04/25/2024 Are you denied basic needs s uch as food, clothing, or medical care? No 04/25/2024 In the past 12 months have y ou been in a relationship with a person who hurts, threatens, or tries to control you? No 04/25/2024 Estimated Date of Delivery Comme nts Yes 09/05/2024 Based on last me nstrual period of 11/30/2023 (Exact Date) Sex and Gender Information Value Date Recorded Sex Assigned at Female 04/25/2024 2:54 PM EST Legal Sex Female 6:24 PM EST Gender Identity Female 04/25/2024 2:54 PM EST Sexual Orientation Don't know 04/25/2024 8: 13 PM EST Last Filed Vital Signs Vital Sign Reading Time Taken Comments Blood Pressure 117/70 05/26/2024 12:25 PM EST Pulse 78 04/26/2024 7:42 AM EST Temperature 37.2 C (99 F) 04/26/2024 7:42 AM EST Respiratory Rate 18 04/26/2024 7:42 AM EST Oxygen Saturation 97% 04/26/2024 7:42 AM EST Inhaled Oxygen Concentration - - Weight 69.9 kg (154 lb) 05/12/2024 3:30 PM EST Height 175.3 cm (5' 9 ) 04/25/2024 2:53 PM EST Body Mass Index 22.74 04/25/2024 2:53 PM EST Plan of Treatment Health Maintenance Due Date Last Done Comments DEPRESSION SCREENING 1994 SMOKING Hx and SMOKELESS TOBACCO SCREENING 11/22/1995 MAMMOGRAM 2022 COVID-19 VACCINE ( season) 2023 06/13/2020, 05/16/2020 Adult Td,Tdap Booster 11/14/2026 11/14/2016, 016 PAP SMEAR 09/24/2028 09/25/2023, 12/27, 01/17/2020, Additional history exists HEPATITIS A VACCINES Aged Out 03/16/2012 No long er eligible based on patient's age to complete this topic MENINGOCOCCAL VACCINES (ACWY) Aged Out 08/29/2015 No longer eligible based on patient's age to complete this topic HEPATITIS C SCREENING Completed 02/12/2024, 020 HIV ONE-TIME SCREENING (18-65 YEARS) Completed 02/12/2024 HIB VACCINES Aged Out No longer eligi ble based on patient's age to complete this topic MENINGOCOCCAL VACCINES (B) Aged Out N o longer eligible based on patient's age to complete this topic PNEUMOCOCCAL VACCINES (0-49 years) Aged Out No longer eligible based on patient's age to complete this topic RSV VACCINE (No Doses Required) Completed Medical Devices Not on file Procedures Procedure Name Priority Date/Time Associated Diagnosis Comments US OB BIOPHYSICAL PROFILE WITH OB LIMITED Routine 09/05/2024 4:37 PM EDT AMA (advanced maternal age) multigravida 35+, third trimester HEPATITIS C ANTIBODY, QUALITATIVE Routine 02/12/2024 2:43 PM EDT Encounter for supervision of normal in first trimester, unspecified PAP TEST Routine 09/25/2023 12:00 AM EDT from Last 3 Months or Most Recently Relevant to Health Maintenance Results * US OB BIOPHYSICAL PROFILE WITH OB LIMITED (09/05/2024 4:37 PM EDT) Anatomical Region Laterality Modality Abdomen, Pelvis, Uterus/Adnexa U ltrasound 09/05/2024 4:38 PM EDT Impressions 09/06/2024 8:49 AM EDT 1. Single live IUP in vertex presentation with a BPP of 8/8. However, there is polyhydramnios by MVP of greater than 8 cm. 2. There is a thin echogenic line in the fundal aspect of the fluid which could represent a separation of the amnion. Narrative 09/06/2024 8:49 AM EDT Procedure: US OB BIOPHYSICAL PROFILE WITH OB LIMITED 09/05/2024 3:52 PM US Indications: Advanced Maternal Age. Comparison: No relevant recent comparisons. Maternal age: 43 years. Technique: Transabdominal scan was performed. Color Doppler and M-mode imaging was performed to assess vascularity. FINDINGS: number: 1 position: Vertex. Placental position: Anterior. Placental grade: 3 Heart Rate: 130.0 bpm Cervix: The cervix is suboptimally visualized secondary to head position. Gestational Age by LMP: 40 weeks 0 day(s) Established AAKASH: 40 weeks 0 day(s) Quads: Amniotic Sac Quad 1 - 9.06 cm Amniotic Sac Quad 2 - 3.27 cm Amniotic Sac Quad 3 - 2.43 cm Amniotic Sac Quad 4 - 6.14 cm Amniotic Fluid Index - 20.90 cm Biophysical Profile Score: Fluid: 2 Breathin Movement: 2 Tone: 2 Total: 8 Limited Assessment: The stomach, kidneys, urinary bladder and four-chamber heart were evaluated and normal. Tech Comments: Prieto . BPP 8/8. Active fetus. MVP > 8 cm, but overall DAMIAN < 25 cm. Thin echogenic line seen in fundal aspect of fluid. Appears to cross in front of placenta. ?Amnion Procedure Note Geoffrey Calvillo MD - 09/06/2024 Procedure: US OB BIOPHYSICAL PROFILE WITH OB LIMITED 09/05/2024 3:52 PM US Indications: Advanced Maternal Age. Comparison: No relevant recent comparisons. Maternal age: 43 years. Technique: Transabdominal scan was performed. Color Doppler and M-modeimaging was performed to assess vascularity. FINDINGS: number: 1 position: Vertex. Placental position: Anterior. Placental grade: 3 Heart Rate: 130.0 bpm Cervix: The cervix is suboptimally visualized secondary to headposition. Gestational Age by LMP: 40 weeks 0 day(s) Established AAKASH: 40 weeks 0 day(s) Quads: Amniotic Sac Quad 1 - 9.06 cm Amniotic Sac Quad 2 - 3.27 cm Amniotic Sac Quad 3 - 2.43 cm Amniotic Sac Quad 4 - 6.14 cm Amniotic Fluid Index - 20.90 cm Biophysical Profile Score: Fluid: 2 Breathin Movement: 2 Tone: 2 Total: 8 Limited Assessment: The stomach, kidneys, urinary bladder andfour- chamber heart were evaluated and normal. Tech Comments: Prieto . BPP 8/8. Active fetus. MVP > 8 cm, but overall DAMIAN< 25 cm. Thin echogenic line seen in fundal aspect of fluid. Appears to cross infront of placenta. ?Amnion IMPRESSION: 1. Single live IUP in vertex presentation with a BPP of 8/8. However,there is polyhydramnios by MVP of greater than 8 cm. 2. There is a thin echogenic line in the fundal aspect of the fluid whichcould represent a separation of the amnion. us Barbara Vickers CNM IMG US OBSTETRIC Final Res ult * Hepatitis C antibody, qualitative (02/12/2024 2:43 PM EDT) HCV NON-REACTIV E NON-REACTI VE [facility] Blood 02/12/2024 2:43 PM EDT 02/12/2024 2:48 PM EDT [facility] BLOOD ORDERABLE S Final Result [address] [address] * Pap Test (09/25/2023 12:00 AM EDT) 09/25/2023 09/28/2023 9:3 3 AM EDT Narrative SEE NARRATIVE - 10/02/2023 11:06 AM EDT [address] [address] Geochemical Laboratory Technician: Lucy Romero MD PERSONAL INJURY LEGAL ASSISTANT Cytology Report FINAL DIAGNOSIS A. PAP SMEAR (THIN PREP) CE: SPECIMEN ADEQUACY: Satisfactory for evaluation; transformation zone absent/insufficient. INTERPRETATION: NEGATIVE FOR INTRAEPITHELIAL LESION OR MALIGNANCY. This specimen was analyzed by the automated ThinPrep Imaging System (WAYN.) and manually rescreened by a digital product manager and/or pathologist. Electronically Signed Out By: ELMA Altamirano(ASCP) ELMA Alonso(ASCP) The Pap test is a screening test primarily for squamous cancers and precursors and has associated false-negative and false-positive results. New technologies such as liquid-based preparations may decrease but will not eliminate all false-negative results. Regular sampling and follow-up of unexplained clinical signs and symptoms are recommended to minimize false negative results. PROCEDURES/ADDENDA HPV Testing (Requested) Ordered Date: 09/28/2023 A. PAP SMEAR (THIN PREP) CE: Human Papilloma Virus Test NEGATIVE for high-risk Human Papilloma Virus types 16, 18, 45 and the Other high risk probe set (Includes 31, 33, 35, 39, 51, 52, 56, 58, 59, 66, 68) Note: Testing performed by BigCal[employer] HR-HPV analysis. Clinical correlation is advised. This HPV test was performed at [facility], [address] [place] [address]. This test has been FDA approved for both SurePath and ThinPrep cervical cytology specimens. The accuracy and precision of this test for all other specimen sources has been verified in the Cytopathology Laboratory of the [facility] and has not been cleared or approved by the U.S. Food and Drug Administration. Clinical correlation is advised. CLINICAL HISTORY Date of Last Menstrual Period: Not Provided Menstrual History: Unknown Other Clinical Conditions: Screening Pap SPECIMEN SOURCE A: PAP SMEAR (THIN PREP) CE Patient Name: LUZ MARIA GARRISON : 1980 (Age: 42) Sex: F Institution: [facility] Location: [facility] Date of Collection: 09/25/2023 Date of Reported: 10/02/2023 11:06 Results to: Autumn Potts MD us Autumn Potts MD CYTOLOGY ORDERABLES Final Resu lt SEE NARRATIVE from Last 3 Months or Most Recently Relevant to Health Maintenance Insurance ACO Advance Directives For more information, please contact: [phone] (9AM - 5PM [facility], Thursday-Thursday) * Full Code (Latest Code Status on File) Date Activated Date Inactivated Comments 04/25/2024 10:02 PM Question Answer Comments Code Status Confirmed With: Patient Care Teams Guide Alpine Relationship Specialty Start Date End Date Ivy Tran MD [facility] [place] [address] PCP - General Internal Medicine 01/17/20 Geoffrey Calvillo MD [address] [place] [address], [address] [address] [email or web address] Historical LMR Provider 02/10/17 Additional Source Comments The information contained in this document represents components of the legal health record. It is not the complete legal health record.[facility]
== END 2024-11-24 09:14 | disposition home or self-care (01) ==
LOC: HO.HMCC 08:34
PROVIDERS: PCP Internal Medicine; Visit Provider Internal Medicine
DX: Z00.00 Encounter for general adult medical examination without abnormal findings (principal); E78.00 Pure hypercholesterolemia, unspecified; Z88.1 Allergy status to other antibiotic agents; L98.9 Disorder of the skin and subcutaneous tissue, unspecified; R74.01 Elevation of levels of liver transaminase levels

== ENCOUNTER → 2024-11-24 08:33 | Outpatient (BNVA) | payer OTHER, SELFPAY | PROVIDERS: PCP Internal Medicine; Visit Provider Internal Medicine | DX: Z00.00 Encounter for general adult medical examination without abnormal findings (principal); L98.9 Disorder of the skin and subcutaneous tissue, unspecified; E78.00 Pure hypercholesterolemia, unspecified; R74.01 Elevation of levels of liver transaminase levels; Z88.1 Allergy status to other antibiotic agents; Z13.31 Encounter for screening for depression; Z13.39 Encounter for screening examination for other mental health and behavioral disorders | CPT/HCPCS: 96127; 99396 ==